=== PATIENT | female | born 1985 | race American Indian/Alaskan Native ===

== ENCOUNTER 2020-06-08 23:32 | Emergency (ER) | payer SELFPAY ==
[2020-06-09 00:42] LABS: BUN/Creatinine Ratio 15; Blood Urea Nitrogen 9 mg/dL (7-17); Calcium 9.5 mg/dL (8.4-10.2); Hemolysis Index 2
[2020-06-09 00:48] LABS: Basophils # (Auto) 0.1 K/mm3 (0.0-0.1); Basophils % (Auto) 0.8 % (0.0-1.8); Eosinophils # (Auto) 0.1 K/mm3 (0.0-0.4); Eosinophils % (Auto) 0.9 % (0.0-4.3); Hematocrit 35.5 % (30.3-42.9); Hemoglobin 11.9 gm/dl (10.1-14.3); Lymphocytes # (Auto) 2.6 K/mm3 (1.2-5.4); Lymphocytes % (Auto) 26.3 % (13.4-35.0); Mean Corpuscular HGB Conc 34 % (30-34); Mean Corpuscular Volume 89 fl (79-97); Monocytes % (Auto) 10.5 % (0.0-7.3); Platelet Count 282 K/mm3 (140-440); Red Blood Count 3.96 M/mm3 (3.65-5.03); Red Cell Distribution Width 17.3 % (13.2-15.2)
--- NOTE | 2020-06-09 02:01 | Emergency Department Report ---
ED Head Trauma HPI - General Chief complaint: Seizure Stated complaint: SEIZURE FELL ON FACE Time Seen by Provider: 06/09/20 01:02 Source: patient Mode of arrival: Ambulatory Limitations: No Limitations - History of Present Illness Initial comments: 34-year-old female, history of multiple sclerosis and seizure disorder, presents to ED with complaint of head and facial injury. Patient states 1 night ago, she went out with her friends to a club. Patient states she away from them and went to a gas station. There, patient states she felt like a seizure was coming on. The last thing patient remembers was being in the gas station. She then woke up down the street from the gas station with swelling and abrasions to the left side of her face and lips. Patient presents to ED today with facial pain, headache. Patient denies neck pain. Patient states she was never put on seizure medication. States she was told her seizures is due to her MS. Complaint: head injury -: days(s) (1) Mechanism of Injury: mechanical fall, other (Seizure) Loss of Consciousness: yes Place: outdoors Severity: moderate Other Injuries: RUE Associated Symptoms: denies: nausea, vomiting, weakness, tingling, neck pain - Related Data Allergies/Adverse reactions: Allergies Allergy/AdvReac Type Severity Reaction Status Date / Time latex Allergy Hives Verified 06/09/20 00:02 Penicillins Allergy Hives Verified 06/09/20 00:02 ED Review of Systems ROS: Stated complaint: SEIZURE FELL ON FACE Other details as noted in HPI Comment: All other systems reviewed and negative Gastrointestinal: denies: nausea, vomiting Neurological: headache ED Past Medical Hx - Past Medical History Previous Medical History?: Yes Hx Seizures: Yes Additional medical history: MS - Surgical History Past Surgical History?: Yes Additional Surgical History: Cervical spine surgery - Social History Smoking Status: Current Every Day Smoker Substance Use Type: Marijuana ED Physical Exam - General Limitations: No Limitations General appearance: alert, in no apparent distress - Head Head exam: Present: other (Swelling to left cheek and lips with abrasions present) - Eye Eye exam: Present: normal appearance, PERRL, EOMI - ENT ENT exam: Present: mucous membranes moist, other (Tenderness to left mandible) - Neck Neck exam: Present: normal inspection, full ROM. Absent: tenderness - Respiratory Respiratory exam: Present: normal lung sounds bilaterally. Absent: respiratory distress - Cardiovascular Cardiovascular Exam: Present: regular rate, normal rhythm - GI/Abdominal GI/Abdominal exam: Present: soft. Absent: distended, tenderness - Extremities Exam Extremities exam: Present: other (Abrasions to right wrist). Absent: tenderness, joint swelling - Neurological Exam Neurological exam: Present: alert, oriented X3, CN II-XII intact. Absent: motor sensory deficit - Psychiatric Psychiatric exam: Present: normal affect, normal mood - Skin Skin exam: Present: warm, dry, intact, normal color ED Course Vital Signs 06/08/20 06/09/20 06/09/20 23:48 01:24 03:25 Temperature 98.7 F 98.8 F Pulse Rate 74 59 L 53 L Respiratory 18 16 16 Rate Blood Pressure 128/63 Blood Pressure 101/46 93/60 [Left] O2 Sat by Pulse 98 100 100 Oximetry - Lab Data Result diagrams: 06/09/20 00:06 06/09/20 00:06 Lab Results 06/09/20 06/09/20 06/09/20 Range/Units 00:06 00:06 00:06 WBC 9.8 (4.5-11.0) K/mm3 RBC 3.96 (3.65-5.03) M/mm3 Hgb 11.9 (10.1-14.3) gm/dl Hct 35.5 (30.3-42.9) % MCV 89 (79-97) fl MCH 30 (28-32) pg MCHC 34 (30-34) % RDW 17.3 H (13.2-15.2) % Plt Count 282 (140-440) K/mm3 Lymph % (Auto) 26.3 (13.4-35.0) % Page % (Auto) 10.5 H (0.0-7.3) % Eos % (Auto) 0.9 (0.0-4.3) % Baso % (Auto) 0.8 (0.0-1.8) % Lymph # 2.6 (1.2-5.4) K/mm3 Page # 1.0 H (0.0-0.8) K/mm3 Eos # 0.1 (0.0-0.4) K/mm3 Baso # 0.1 (0.0-0.1) K/mm3 Seg Neutrophils % 61.5 (40.0-70.0) % Seg Neutrophils # 6.0 (1.8-7.7) K/mm3 Sodium 138 (137-145) mmol/L Potassium 3.5 L (3.6-5.0) mmol/L Chloride 100.0 (98-107) mmol/L Carbon Dioxide 23 (22-30) mmol/L Anion Gap 19 mmol/L BUN 9 (7-17) mg/dL Creatinine 0.6 (0.6-1.2) mg/dL Estimated GFR > 60 ml/min BUN/Creatinine Ratio 15 % Glucose 110 H (65-100) mg/dL Calcium 9.5 (8.4-10.2) mg/dL HCG, Qual Negative (Negative) - Radiology Data Radiology results: report reviewed, image reviewed - Medical Decision Making 34-year-old female with facial injuries following seizure. CT head and face are negative for any acute findings. Labs are unremarkable. Patient states she is not currently on any antiepileptic medications. Patient is A&O x3. She has been instructed to follow-up with neurologist as an outpatient. She will be discharged at this time. Patient states she does not need any prescriptions for pain to go home on. - Differential Diagnosis Intracranial injury, facial fracture Critical care attestation.: If time is entered above; I have spent that time in minutes in the direct care of this critically ill patient, excluding procedure time. ED Disposition Clinical Impression: Seizure, Acute head injury, Contusion of face Disposition: DC- TO HOME OR SELFCARE Is pt being admited?: No Condition: Stable Instructions: Minor Head Injury (ED), Contusion in Adults (ED), Recurrent Seizures Adult (ED) Referrals: PRIMARY MD LEROY [Primary Care Provider] - 3-5 Days VALDEMAR GRAJEDA MD [Referring] - 3-5 Days Time of Disposition: 03:04
--- NOTE | 2020-06-09 02:13 | Cat Scan Report ---
CLINICAL DATA: fall, injury TECHNICAL DATA: CT imaging of the facial bones was performed with images presented in the coronal, axial, and sagitta l imaging planes. All CT scans at this location are performed using CT dose reduction for ALARA by means of automated exposure control. FINDINGS: The facial bones are intact without evidence of fracture. The paranasal sinuses are clear and aerate d. Partially imaged mastoids are clear. The temporomandibular joints and mandible are unremarkable to the extent of visualization allowed by this technique. The teeth appear grossly unremarkable. Th e orbits are unremarkable with globes being intact. Extraocular muscles, optic nerves, and retroorbi kelsea fat are normal. IMPRESSION: Normal facial bone CT. Signer Name: Ned Lovett MD Signed: 06/09/2020 2:09 AM Workstation Name: [id number]
--- NOTE | 2020-06-09 02:15 | Cat Scan Report ---
CT HEAD WITHOUT CONTRAST HISTORY: fall, injury COMPARISON: None TECHNIQUE: CT imaging of the head was performed in the axial, sagittal, and coronal projections and bone algori thm in axial projection in the soft tissue algorithm. All CT scans at this location are performed using CT dose reduction for ALARA by means of automated e xposure control. CONTRAST: None. FINDINGS: Cerebral and Cerebellar Hemispheres: No evidence of mass or mass effect. No midline shift. No acute hemorrhage. No acute cortical infarction. No extra-axial fluid collection. Ventricles: Normal in size and configuration for age. Osseous Structures: No significant abnormality. Visualized Paranasal Sinuses: No significant abnormality. Additional Findings: None IMPRESSION: 1. No acute intracranial abnormality. NOTE: Acute infarct may not be visible by noncontrast CT. Signer Name: Ned Lovett MD Signed: 06/09/2020 2:11 AM Workstation Name: [id number]
[2020-06-09 03:26] VITALS: BP 93/60
== END 2020-06-09 03:28 | disposition home or self-care (01) ==
LOC: ED 23:32
DX: S00.83XA Contusion of other part of head, initial encounter (principal); S09.90XA Unspecified injury of head, initial encounter; X58.XXXA Exposure to other specified factors, initial encounter; Y93.89 Activity, other specified; Y92.89 Other specified places as the place of occurrence of the external cause; Y99.8 Other external cause status
CPT/HCPCS: 36415; 70450; 70486; 80048; 84703; 85025